=== PATIENT | male | born 1965 | race Caucasian/White ===

== ENCOUNTER 2023-02-02 13:41 | Emergency (ER) | payer BC ==
[~2023-02-02] VITALS: Ht 175.3 cm; Wt 104.3 kg
[~2023-02-02 13:41] MED LIST: ANTIBIOTICS; IBUP-1970
[2023-02-02 13:46] VITALS: BP_SYST 130; PULSE 81; RESP 16; TEMP 97.6; O2SAT 97
[2023-02-02 15:39] LABS: BILIRUBIN,URINE NEGATIVE (NEGATIVE); BLOOD, URINE NEGATIVE (NEGATIVE); CLARITY/URINE CLEAR (CLEAR); COLOR,URINE YELLOW (YELLOW); GLUCOSE,URINE NEGATIVE (NEGATIVE); KETONES,URINE NEGATIVE (NEGATIVE); LEUKOCYTE ESTERASE ,URINE NEGATIVE (NEGATIVE); NITRITE, URINE NEGATIVE (NEGATIVE); PROTEIN URINE NEGATIVE (NEGATIVE); UROBILINOGEN,URINE 0.2 (0.2-1.0)
[2023-02-02] MEDS ORDERED: DICL20GE TP (17:14)
[2023-02-02] MEDS ORDERED: DICL75TA5 PO (17:14)
[2023-02-02 17:33] VITALS: BP_SYST 143; PULSE 72; RESP 15; TEMP 97.7; O2SAT 99
== END 2023-02-02 17:31 | disposition home or self-care (01) ==
LOC: SED 13:41
DX: M54.42 Lumbago with sciatica, left side (principal); N40.0 Benign prostatic hyperplasia without lower urinary tract symptoms
CPT/HCPCS: 72100-TC; 72131; 76376; 81001; 81003; 99284